=== PATIENT | female | born 1940 ===

== ENCOUNTER 2024-03-19 12:30 | Outpatient (AMB) | payer MEDICARE, SELFPAY ==
--- NOTE | 2024-03-19 13:34 | MHC.AMDMED ---
Intake Intake Visit Reasons: T2DM Lure Maker Required: No Accompanied by: Self / Same As Patient HPI Comprehensive Diabetes Asmnt Most Recent Diabetes Results: No Data to Display Assessment & Plan Assessment & Plan (1) Diabetes: Code(s): E11.9 - Type 2 diabetes mellitus without complications Plan: Diabetes self-management education and support participation record Assessment/scale: 1= needs instructed? 2= needs review? 3= comprehend keep point? 4= demonstrates understanding/ competent? NC= Not Covered Topics Learning Objective: Initial visit Initial or post srvc Initial or post srvc Initial or post srvc Initial or post srvc Initial or post srvc Post srvc Comments Pre Edu-assessment/plan Outcome or reassess Outcome or reassess Outcome or reassess Outcome or reassess Outcome or reassess Outcome or reassess Diabetes pathophysiology 1 Healthy eating 2 Being active 1 Taking medication 1 Monitoring glucose 1 Acute complication Chronic complicated 1 Lifestyle and healthy coping 1 Diabetes distress in support ?Diabetes pathophysiology: ?Defined diabetes med identify own type of diabetes; list 3 options for treating diabetes Healthy eating: ?Described effect of type, amount and ?timing of food on blood glucose; list 3 methods for planning meal Being active: ?State effect of exercise on blood glucose level Taking medication: ?State effect of diabetes medications on diabetes; name diabetes medications taking, action and side effects Monitoring glucose: ?Identify recommended blood glucose targets and personal target Acute complication: ?List symptoms and treatment of hyper and hypoglycemia, DKA, sick day guidelines and guidelines for severe weather or situations of crisis and diabetes supply manage Chronic complication: ?To find the relationship of blood glucose levels to long-term complications of diabetes in screening and preventative measures Lifestyle and healthy coping: ?Described lifestyle and healthy coping strategies to rule out diabetes self-management Diabetes to stress and support: ?Recognize Diabetes to stress and be able to identified support options Learning objectives: The patient was provided with verbal and written education on the following topics as outlined below. The patient met all learning objectives and was able to verbalize understanding and provide teach back of education topics discussed . The patient was provided with the opportunity to ask questions and all questions were answered. Patient Assessment Assess patient education level/literacy/barriers Patient questions/concerns, patient referred from [facility], last A1c on record 07/31/2023 7.8% Patient is on metformin 1000 mg daily, reports she can not tolerate higher dose What is Diabetes? Pathophysiology How the body produces and uses insulin Identify type of DM Risk factors Signs of Diabetes Brief overview of Diabetes Management Monitoring blood sugar Following a meal plan Regular exercise Maintaining a healthy weight Taking medication as needed Members of the care team (PCP, RN, MA, RD, CDE, senior internet sales consultant) Blood glucose monitoring When/how often to test Target blood sugar ranges Patient is not currently testing glucose levels Introduction to Nutrition Importance of healthy diet in managing DM Diet is personalized to individual preference Review patient?s regular diet/food preferences Who prepares meals/does food shopping/ Dining out?/ Barriers? How diet effects glucose Eating 3 balanced meals a day with small, healthy snacks between meals Review food groups Carbohydrates: What is a carbohydrate/Which food/food groups are considered carbohydrates Effect of carbohydrates on blood glucose Portion sizes Reading food labels Basic carb counting (if applicable per nursing assessment) Plate method Meal planning Recommendations: Follow plate method, consistent carbs and read nutritional labels. Smart Goal: Patient will identify foods in her current meal plan that contain carbohydrates before next visit Educational Materials: The patient was provided with the following written educational materials: Planning Healthy Meals Handout Patient Response to instructions: Comprehension of Instructions: Fair Readiness to make changes: Contemplation How confident they feel about making changes: Positive Portions of this note were created using voice recognition software, please excuse any words or phrases that may have been misinterpreted. Patient Instructions: Include regular daily activity. ADA recommends 30 minutes of exercise 5 days a week. Weight loss talk to PCP or [facility] Nurse before starting new plan. Test blood sugar as directed; Fasting and 2hpp largest meal. Watch trends in results. Utilize results and to assess how food, physical activity and medications affect blood sugar results. Bring glucometer or CGM to next visit. Be knowledgeable about diabetes medication, its action, side effects, efficacy, toxicity, prescribed dosage, appropriate timing and frequency of administration, effect of missed and delayed doses and instructions for storage, travel and safety. Problem solving techniques to monitor hypo/hyperglycemia episodes and treatments. Reduce risk reduction behaviors, smoking cessation, regular eye, foot and dental examinations. Coding Level of Care Code Est Pt Level 1 (96934) Diagnoses Diabetes E11.9
--- OUTSIDE RECORDS SUMMARY | 2024-03-19 14:23 | XMS_ITS | Continuity of Care Document ---
Author Organization [facility] [address] [place] [address] Phone [phone] Care Team Providers Care Lay Out Carpenter Name Role Phone Trino Rooney M.D. Care Team Information Director Ship [phone] Problems Active Problems Provider Date Hyperlipidemia Angel Lambert M.D. Onset: 0 04/04/2023 Type 2 diabetes mellitus Angel Lambert M.D. Onset: 04/04/2023 Polyp of colon Angel Lambert M.D. Onset: 0 04/04/2023 Essential hypertension Angel Lambert M.D. O nset: 04/04/2023 Hypothyroidism Angel Lambert M.D. Onset: 0 04/04/2023 Social History Type Date Description Comments Sex Unknown Tobacco Use Start: Unknown Never Smoked Cigarettes ETOH Use Rarely consumes alcohol Allergies and adverse reactions Description No Known Drug Allergies Medications Active Medications SIG Qnty Indications Order ing Provider Date Metformin [id number] Tablets take 2 tablets by mouth twice a day 360tabs Angel Lambert M.D. 04/04/2023 Levothyroxine [id number] Tablets Take 1 Tablet By Mouth Daily 4 Days Per Week And 1&1/2 Tablets On 3 Days Per Wee Trino Rooney M.D. Amlodipine Besylate2.5mg Tablets Take 1 Tablet By Mouth Every Day Trino Rooney M.D. Atorvastatin [id number] Tablets Take 1 Tablet By Mouth Every Day Trino Rooney M.D. Vital Signs Date Vital Result Comment 06/09/2023 2:57pm BP Systolic 155 mmHg BP Diastolic 80 mmHg Heart Rate 72 /min Height 66.5 inches 5'6.50 Weight 125.50 lb BMI (Body Mass Index) 20.0 kg/m2 Results Test Acquired Date Facility Test Result H/L Range [place] Hemoglobin A1c 06/16/2023 [facility] Hemoglobin A1c 7.8 % High 4.8-5.6 1 Laboratory test finding 06/09/2023 Inhouse Glucose Fingerstick 117 Laboratory test finding 04/04/2023 Inhouse Glucose Fingerstick 258 Hemoglobin A1c 9.4% 1 Prediabetes: 5.7 - 6 .4 Diabetes: >6.4 Glycemic control for adults with diabetes: <7.0 Medical Devices Description No Information Available Encounters Type Date Location Provider Dx Diagnosis Office Visit 06/09/2023 2:45p Main Office Angel Lambert M.D. E11.8 Type 2 diabetes mellitus with unspecified complications Assessments Date Code Description Provider 06/09/2023 E11.8 Complication due to diabetes mellitus Angel Lambert M.D. Plan of Treatment No Information Available Functional Status Description No Information Available Mental Status Description No Information Available Referrals Description No Information Available
== END 2024-03-19 13:40 | disposition home or self-care (01) ==
PROVIDERS: PCP Internal Medicine; Visit Provider Registered Nurse Diabetes Educator
DX: E11.9 Type 2 diabetes mellitus without complications (principal)

== ENCOUNTER → 2024-03-19 12:30 | Outpatient (BNVA) | payer MEDICARE, SELFPAY | PROVIDERS: PCP Internal Medicine; Visit Provider Registered Nurse Diabetes Educator | DX: E11.9 Type 2 diabetes mellitus without complications (principal); Z71.3 Dietary counseling and surveillance | CPT/HCPCS: 99211 ==

== ENCOUNTER 2024-08-08 12:30 | Outpatient (AMB) | payer MEDICARE, SELFPAY ==
--- OUTSIDE RECORDS SUMMARY | 2024-08-08 12:32 | XMS_ITS | Continuity of Care Document ---
Author Organization [facility] [address] [place] [address] Phone [phone] Care Team Providers Care Air Conditioning Equipment Mechanic Name Role Phone Trino Rooney M.D. Care Team Information Embroidery Supervisor [phone] Problems Active Problems Provider Date Hyperlipidemia Angel [...] Qnty Indications Order ing Provider Date Metformin [id number] Tablets take 2 tablets by mouth twice a day 360tabs Angel Lambert M.D. 04/04/2023 Levothyroxine [id number] Tablets Take 1 Tablet By Mouth Daily 4 Days Per Week And 1&1/2 Tablets On 3 Days Per Wee Trino Rooney M.D. Amlodipine Besylate2.5mg Tablets Take 1 Tablet By Mouth Every Day Trino Rooney M.D. Atorvastatin [id number] Tablets Take 1 Tablet By Mouth Every [...] Hemoglobin A1c 7.8 % High 4.8-5.6 1 Glucose Fingerstick 06/09/2023 Inhouse Glucose Fingerstick 117 Glucose Fingerstick 04/04/2023 Inhouse Glucose Fingerstick 258 Hemoglobin A1c 04/04/2023 Inhouse Hemoglobin A1c 9.4% 1 Prediabetes: 5.7 - [...]
--- NOTE | 2024-08-08 13:28 | A.OFFVIS_ITS ---
Intake Intake Visit Reasons: 60 min Parts Representative Required: No Accompanied by: Self / Same As Patient HPI Comprehensive Diabetes Asmnt Most Recent Diabetes Results: No Data to Display Assessment & Plan Assessment & Plan (1) Diabetes: Code(s): E11.9 - Type 2 diabetes mellitus without complications Plan: Diabetes self-management education and support participation record Assessment/scale: 1= needs instructed? 2= needs review? 3= comprehend keep point? 4= demonstrates understanding/ competent? NC= Not Covered Topics Learning Objective: Initial visit Initial or post srvc Initial or post srvc Initial or post srvc Initial or post srvc Initial or post srvc Post srvc Comments Pre Edu-assessment/plan Outcome or reassess Outcome or reassess Outcome or reassess Outcome or reassess Outcome or reassess Outcome or reassess Diabetes pathophysiology 1 3 Healthy eating 2 3 Being active 1 3 Taking medication 1 3 Monitoring glucose 1 3 Acute complication 1 Chronic complicated 1 3 Lifestyle and healthy coping 1 1 Diabetes distress in support B 1 ?Diabetes pathophysiology: ?Defined diabetes med identify own type of diabetes; list 3 options for treating diabetes Healthy eating: ?Described effect of type, amount and ?timing of food on blood glucose; list 3 methods for planning meal Being active: ?State effect of exercise on blood glucose level Taking medication: ?State effect of diabetes medications on diabetes; name diabetes medications taking, action and side effects Monitoring glucose: ?Identify recommended blood glucose targets and personal target Acute complication: ?List symptoms and treatment of hyper and hypoglycemia, DKA, sick day guidelines and guidelines for severe weather or situations of crisis and diabetes supply manage Chronic complication: ?To find the relationship of blood glucose levels to long- term complications of diabetes in screening and preventative measures Lifestyle and healthy coping: ?Described lifestyle and healthy coping strategies to rule out diabetes self-management Diabetes to stress and support: ?Recognize Diabetes to stress and be able to identified support options Learning objectives: The patient was provided with verbal and written education on the following topics as outlined below. Meter Teaching Patient presents today for a nursing visit for glucometer teaching. Patient also has [employer] Rody 3 sensors, but reports they are too complicated. She stated she does not believe they work inside her house. Patient did not have latest A1c at today's visit, called patient's PCP office left message for them to reach out patient regarding latest lab results Type of Meter: Patient Education: Patient was instructed and provided with demonstration of the following: Setting date/time Turning meter on/off Retrieving blood glucose log Handwashing Test sites Site rotation Use of lancing device Testing blood glucose Removing and disposing needle from lancing device Safe disposal of sharps Target blood sugar Signs/ symptoms/treatment of hypoglycemia/hyperglycemia Frequency of testing Patient verbalized understanding of education provided and was able to demonstrate proper use of lancing device and glucometer. Blood Glucose at time of visit: ???161? All questions were answered and patient was advised to contact the office with any questions or concerns Portions of this note were created using voice recognition software, please excuse any words or phrases that may have been misinterpreted. The patient met all learning objectives and was able to verbalize understanding and provide teach back of education topics discussed . The patient was provided with the opportunity to ask questions and all questions were answered. Topics covered in today?s session included: Hypoglycemia and Hyperglycemia * Signs and symptoms? * Causes?? * Treatment? * Preventing hypoglycemia? * When to seek medical attention Target Goals: * Blood glucose targets and how you feel when your blood glucose is in and out of your target ranges. * Monitoring and knowing your A1C. * What can make blood glucose go up and down and preventing high and low blood glucose. * Review of blood sugar targets in expected goal range and outside of expected goal range. * Problem solving and preventing hyper/hypoglycemia. * Sick day management of diabetes. * Using blood sugar results in decision making process in managing diabetes. ?Patient was receptive to information provided and participated in the discussion. Asked?appropriate questions and demonstrated good understanding of the topics discussed.? ? Educational Materials: The patient was provided with the following written educational materials: Target Goal handout Smart Goal Assessment:?Identify foods in her current meal plan that contain carbohydrates before next visit Pt met goal 75% New Smart Goal: Patient will test glucose 3 times a week until next visit Patient Response to instructions: Comprehension of Instructions: fair Readiness to make changes:? Contemplation How confident they feel about making changes:fair Portions of this note were created using voice recognition software, please excuse any words or phrases that may have been misinterpreted. Coding Level of Care Code Est Pt Level 1 (32197) Diagnoses Diabetes E11.9
== END 2024-08-08 13:32 | disposition home or self-care (01) ==
LOC: HO.ENCR 12:30
PROVIDERS: PCP Internal Medicine; Visit Provider Registered Nurse Diabetes Educator
DX: E11.9 Type 2 diabetes mellitus without complications (principal)

== ENCOUNTER → 2024-08-08 12:30 | Outpatient (BNVA) | payer MEDICARE, SELFPAY | PROVIDERS: PCP Internal Medicine; Visit Provider Registered Nurse Diabetes Educator | DX: E11.9 Type 2 diabetes mellitus without complications (principal) | CPT/HCPCS: 99211 ==